=== PATIENT | female | born 1960 | race African-American/Black ===

== ENCOUNTER → 2019-06-16 | Emergency (ER) | payer MEDICAID, OTHER ==
[~2019-06-16] VITALS: Ht 162.6 cm; Wt 56.7 kg
[~2019-06-16] MED LIST: Azithromycin 250mg tab ORAL ONE; BACLOFEN10 MG ORAL; IBUPROFEN600 MG PO; Lidocaine 1% MPF 10mg/ml 5ml INJ ONE; METRONIDAZOLE500 MG ORAL; NAPROSYN500 M1 ORAL; NITROFURANTOIN100 M2 ORAL; TRAMADOL HCL MC; TRAMADOL HCL50 MG ORAL
[2019-06-16 16:08] VITALS: BP 110/72
[2019-06-16 16:28] LABS: APPEARANCE,URINE CLEAR; BILIRUBIN, URINE NEGATIVE (NEGATIVE); COLOR,URINE PALE YELLOW; GLUCOSE, URINE (UA) NEGATIVE (NEGATIVE); KETONES,URINE NEGATIVE (NEGATIVE); LEUKOCYTE ESTERASE ,URINE 3+ (NEGATIVE); NITRITE,URINE NEGATIVE (NEGATIVE); PH,URINE 6 (4.5-8.0); PROTEIN,URINE NEGATIVE (NEGATIVE); UROBILINOGEN,URINE NORMAL MG/DL (0.0-1.0)
--- NOTE | 2019-06-16 16:39 | Emergency Room Report ---
History of Present Illness General Chief Complaint: Abdominal Pain Source: Patient Present Illness HPI 58-year-old female presents to the emergency department complaining of 8 out of 10 severity vaginal burning sensation with d/c x 1 day. She also c/o dysuria . Pt. reports hx of recent unprotected intercourse. Denies rashes or sores. Denies swollen tender lymph nodes. She denies hematuria or frequency. She denies abdominal pain. She reports having chills earlier today. Denies N/V, constipation or diarrhea. Pt. with PmHx of Depression and OA. She denies joint pain. No other aggravating or relieving factors at this time. Pt. denies recent abx use. Allergies: Coded Allergies: No Known Allergies (Unverified , 05/10/13) Patient History Past Medical History: see triage record Past Surgical History: none Pertinent Family History: none Last Menstrual Period: 06/2008 Now: No Reviewed Nursing Documentation: PMH: Agreed; PSxH: Agreed Nursing Documentation-PMH Past Medical History: No History, Except For Hx Cardiac Problems: No - OSTEOARTHRITIS History Of Psychiatric Problem: Yes - SEVERE DEPRESSION Review of Systems All Other Systems: negative except mentioned in HPI Physical Exam Vital Signs Date Time Temp Pulse Resp B/P (MAP) Pulse Ox O2 Delivery O2 Flow Rate FiO2 06/16/19 15:38 98.4 104 12 110/72 (85) 92 Room Air Sp02 EP Interpretation: reviewed, normal General Appearance: no apparent distress, alert, GCS 15, non-toxic Head: normocephalic, atraumatic Eyes: bilateral eye normal inspection, bilateral eye PERRL ENT: hearing grossly normal, normal voice Neck: full range of motion Respiratory: lungs clear, normal breath sounds, speaking full sentences Cardiovascular #1: regular rate, rhythm Gastrointestinal: normal bowel sounds, non tender, soft, non-distended, no guarding Rectal: deferred Genitourinary: normal inspection, no CVA tenderness, adnexa normal, ext genitalia/vag normal, other - yellow-white milky d/c in the vaginal vault. No CMT. Musculoskeletal: back normal, normal range of motion, gait/station normal, non- tender Neurologic: alert, motor strength/tone normal, oriented x3, sensory intact, responsive, speech normal Psychiatric: judgement/insight normal Skin: no rash, normal color, normal inspection Lymphatic: no adenopathy Medical Decision Making PA Attestation Dr. Rodriguez Is my supervising Physician whom patient management has been discussed with. Diagnostic Impression: Primary Impression: Vaginitis Qualified Codes: N76.0 - Acute vaginitis Additional Impressions: Trichomonas vaginitis Urinary tract infection Qualified Codes: N30.01 - Acute cystitis with hematuria ER Course 58-year-old female presents to the emergency department complaining of 8 out of 10 severity vaginal burning sensation with d/c x 1 day. She also c/o dysuria . Pt. reports hx of recent unprotected intercourse. Denies rashes or sores. Denies swollen tender lymph nodes. She denies hematuria or frequency. She denies abdominal pain. She reports having chills earlier today. Denies N/V, constipation or diarrhea. Pt. with PmHx of Depression and OA. She denies joint pain. No other aggravating or relieving factors at this time. Pt. denies recent abx use. Ddx considered but are not limited to UTi , Pyelo, STI, Stone, Cystitis, vaginal laceration, vaginitis. Vital signs: are WNL, pt. is afebrile H& PE are most consistent with: Vaginitis -- Non-toxic in appearance, NAD. NO evidence to suggest acute abdomen on exam. ORDERS: - UA: indicative of UTI - Wet [place] : positive trichomonas ED INTERVENTIONS: -Rocephin IM -Azithromycin 1 g PO DISCHARGE: At this time pt. is stable for d/c to home. Will provide printed patient care instructions, and any necessary prescriptions. Care plan and follow up instructions have been discussed with the patient prior to discharge. discussed with the patient prior to discharge. Labs Test 06/16/19 16:10 Urine Color Pale yellow Urine Appearance Clear Urine pH 6 (4.5-8.0) Urine Specific [place] 1.005 (1.005-1.035) Urine Protein Negative (NEGATIVE) Urine Glucose (UA) Negative (NEGATIVE) Urine Ketones Negative (NEGATIVE) Urine Blood 1+ (NEGATIVE) Urine Nitrite Negative (NEGATIVE) Urine Bilirubin Negative (NEGATIVE) Urine Urobilinogen Normal MG/DL (0.0-1.0) Urine Leukocyte Esterase 3+ (NEGATIVE) Urine RBC 2-4 /HPF (0 - 2) Urine WBC 15-20 /HPF (0 - 2) Urine Squamous Epithelial Cells Occasional /LPF Urine Bacteria Few /HPF (NONE) Last Vital Signs Date Time Temp Pulse Resp B/P (MAP) Pulse Ox O2 Delivery O2 Flow Rate FiO2 06/16/19 16:08 98.4 92 12 110/72 92 Room Air Disposition: HOME, SELF-CARE Condition: Stable Scripts Nitrofurantoin Monohyd/M-Cryst* (MACROBID 100 MG*) 100 Mg Capsule 100 MG ORAL EVERY 12 HOURS for 5 Days, #10 CAP Prov: Cassidy Blancas 06/16/19 Metronidazole* (FLAGYL*) 500 Mg Tablet 500 MG ORAL BID for 7 Days, #14 TAB Prov: Cassidy Blancas 06/16/19 Referrals: NON PHYSICIAN (PCP) Patient Instructions: Trichomoniasis, Vaginitis, [id number] Additional Instructions: Take medications as directed. ! Do not drink alcohol while taking Flagyl/Metronidazole as this will cause a skin reaction. Follow up with a Primary Care Provider in 3-5 days, even if your symptoms have resolved. Return sooner to ED if new symptoms occur, or current symptoms become worse. - Please note that this Emergency Department Report was dictated using [employer] circulation technician technology software, occasionally this can lead to erroneous entry secondary to interpretation by the dictation equipment. Cassidy Blancas Jun 16, 2019 16:39
== END | disposition home or self-care (01) ==
LOC: EMR 16:15
DX: N76.0 Acute vaginitis (principal); A59.01 Trichomonal vulvovaginitis; N30.01 Acute cystitis with hematuria; M19.90 Unspecified osteoarthritis, unspecified site
CPT/HCPCS: 81003; 87086; 87210; 96372; 99283; J0696